=== PATIENT | female | born 1985 | race Caucasian/White ===

== ENCOUNTER 2021-07-11 17:04 | Emergency (ER) | payer MEDICAID, OTHER ==
[~2021-07-11] VITALS: Ht 157.5 cm; Wt 66.0 kg
[2021-07-11 17:06] VITALS: BP 157/109
[2021-07-11] MEDS ORDERED: ACETAMINOPHEN 500MG TABLET PO ONE (18:45)
== END 2021-07-11 21:19 | disposition home or self-care (01) ==
LOC: ER 17:04
DX: S09.8XXA Other specified injuries of head, initial encounter (principal); S80.12XA Contusion of left lower leg, initial encounter; Z88.3 Allergy status to other anti-infective agents; Z86.718 Personal history of other venous thrombosis and embolism; Z79.01 Long term (current) use of anticoagulants; V43.62XA Car passenger injured in collision with other type car in traffic accident, initial encounter; Y92.488 Other paved roadways as the place of occurrence of the external cause
CPT/HCPCS: 73562; 73590; 99284